=== PATIENT | female | born 1970 | race Caucasian/White ===

== ENCOUNTER → 2017-11-05 18:20 | Outpatient (CLI) | payer OTHER, SELFPAY | PROVIDERS: Family Provider Family Medicine; PCP Family Medicine | DX: N39.0 Urinary tract infection, site not specified (principal) | CPT/HCPCS: 87086; 87088 ==

== ENCOUNTER → 2020-05-25 | Outpatient (CLI) | payer OTHER, SELFPAY | END | disposition home or self-care (01) | LOC: LABSPEC 13:41 | PROVIDERS: PCP Family Medicine; Visit Provider Family Medicine | DX: B34.9 Viral infection, unspecified (principal) | CPT/HCPCS: 87635; U0005; U0003 ==

== ENCOUNTER → 2020-07-20 | Outpatient (CLI) | payer OTHER, SELFPAY ==
[2020-07-21 16:49] LABS: Probe Check PASS; Specimen Processing Control PASS
== END | disposition home or self-care (01) ==
LOC: LABSPEC 13:45
PROVIDERS: PCP Family Medicine; Referring Provider Family Medicine; Visit Provider Family Medicine
DX: Z20.822 Contact with and (suspected) exposure to COVID-19 (principal)
CPT/HCPCS: 87635; U0002; U0003

== ENCOUNTER → 2020-11-15 10:23 | Outpatient (CLI) | payer OTHER, SELFPAY ==
--- NOTE | 2020-11-15 10:24 | RAD_ITS ---
STUDY: X-RAY - LUMBOSACRAL SPINE REASON FOR EXAM: Female, 49 years old. Lumbar back pain with L L5 radicular symptoms TECHNIQUE: 6 view(s) of the lumbosacral spine were obtained including oblique views and flexion and extension views.. COMPARISON: None FINDINGS: Normal lumbar lordosis. There is no substantial scoliosis. There is normal alignment of the vertebrae. Normal vertebral bodies and endplates. Mild degree of disc space narrowing at the L5-S1 level. Normal bilateral sacral ala, sacroiliac joints, and visualized sacrum. Normal visualized soft tissue structures. RAD/L/S Spine w Bend Min 6 Vw IMPRESSION: Degenerative changes of the spine, as detailed above. Electronically Signed: Evangelista Thibodeaux MD at 15:41 EDT , Service support ,
== END ==
PROVIDERS: PCP Family Medicine; Referring Provider Family Medicine; Visit Provider Family Medicine
DX: M54.17 Radiculopathy, lumbosacral region (principal)
CPT/HCPCS: 72114

== ENCOUNTER 2020-12-09 09:00 | Outpatient (RCR) | payer OTHER, SELFPAY ==
--- NOTE | 2020-11-16 12:10 | HP.PTEVAL_ITS ---
Patient's Visit Information MARKOS CABRERA is a 49 year old F referred to Physical Therapy by Dr. Surya Gomez MD with a diagnosis of BACK STRAIN, L5 LEFT LEG RADICULOPATHY. Date of Evaluation: 11/16/20 Physical Therapist: Brianna Murdock PT, Cert MDT - Visit Plan Frequency: 2-3x /Week Duration: 4-6 Weeks Plan: POSTURE CORRECTION/STRENGTHENING, INSTRUCTION IN APPROPRIATE BODY MECHANICS AND ACTIVITY MODIFICATIONS. DLS STARTING WITH A NEUTRAL SPINE PROGRESSING ROM TOLERATED. MICHAEL LE ROM, STRETCHING AND STRENGTHENING. HEP INSTRUCTION. - Subjective Work/Leisure: PATIENT IS UNEMPLOYEED. TAKES CARE OF HER DAD - LIVES WITH HER. 21, 19 AND 17 YEAR OLD CHILDREN ALSO LIVE WITH HER. IS IN GOOD HEALTH. Disability: NO. Present symptoms: LEFT LOW BACK PAIN. LEFT HIP PAIN. RADIATES DOWN THE BACK OF LEG TO CALF. CALF IS TENSE AND TIGHT. THE LEFT LEG TINGLES AND IS SOMETIMES NUMB. PAIN, NUMBESS AND TINGLING TO THE FOOT AND TOES TOES. Present since: ABOUT 3 MONTHS. Pain Scale: WORST 9/10, LEAST 3/10. Currently: 5/10. Commenced as a result of: NO APPARENT REASON. Symptoms at onset: LOW BACK PAIN. Worse: BENDING, TRYING TO PUT SHOES AND SOCKS ON, USING L LE TO BRIDGE IN BED, GETTING IN AND OUT OF THE CAR, TWISING. LIFTING. Better: CHANGE OF POSITION, PAIN PILLS, AVOIDING BENDING AND TWISTING. BENDING TO LIFT. LYING DOWN. RISING FROM SITTING. Disturbed sleep: NO. Previous history/Previous treatment: INTERMITTENT LOW BACK PAIN. SEES A CHIROPRACTOR REGULARLY FOR ABOUT 19 YEARS. STARTED SEEING CHIROPRACOTR FOR LOW BACK PAIN AND WELLNESS. NO BACK SURGERY. NO TAMAR'S. NO PHYSICAL THERAPY FOR BACK. Treatment this episode: [address] WASSERMAN OFFICE. PAIN MEDICINE, PREDNISONE AND MUSCLE RELAXER. 3 CHIROPRACTIC VISIT FOR THIS LOW BACK PAIN. MASSAGE THERAPIST ONCE. MASSAGE AND CHIROPRACTOR HELPED TEMPORARILY. Coughing/sneezing/straining: POSITIVE. Gait: LIMPING ON LLE. I FEEL LIKE I AM HOBBLING. Difficulty initiating urinatin: NO. Accidents: NO. Unexplained weight loss: NO. Imaging: RECENT LOW BACK X-RAY - Mild degree of disc space narrowing. at the L5-S1 level. PMH: UNREMARKABLE. Recent major surgery: NO. OTHER: STILL GETTING LLE MUSCLE CRAMPS MY MUSCLES JUMP. PATENT REPORTS THAT SHE HAS BEEN DOING CROSS FIT DAILY FOR ABOUT 5 YEARS. HASN'T BEEN TO THE GYM FOR A WEEK. THE WEEK BEFORE ALL SHE WAS ABLE TO DO WAS WALK ON THE [place]. HAS NOT BEEN ABLE TO DO HER NORMAL CROSS FIT WORK OUT FOR A FEW WEEKS. STATES SHE ORIGIANLLY TRIED TO WORK THROUGH HER LOW BACK PAIN WITH CROSS FIT BUT THE PAIN JUST KEPT GETTING WORSE. TRIED TO MODIFY HER EX'S BUT EVENTUALLY COULDN'T DO IT ANYMORE. - Objective Sitting/Standing Posture: POOR. Lordosis: NORMAL. Lateral shift: NO. Relevant shift: N/A. Active Correction of posture: WORSE. Other Observations: INDEP SLOW ANTALGIC GAIT INTO PT LIMPING ON THE L LE. Motor deficit: MICHAEL LE'S 5/5 WITH MMT'ING EXCEPT L HIP 4/5. Sensory deficit: DECREASED LIGHT TOUCH SENSATION OF LEFT THIGH COMPARED TO RIGHT AND PATIENT REPORTS A TINGLING AND MORE DULL SENSATION L COMPARED TO RIGHT. ROM deficit: MICHAEL LE'S WFL. Reflexes: 2/3 MICHAEL LE'S EXCEPT UNABLE TO ELICIT LEFT ACHILLES. Dural Signs: POSITIVE MICHAEL LE'S - LEFT > RIGHT. Lumbar mvmt loss: flex - JERRY. ext - JERRY. R SG - MOD. L SG - MOD. PATIENT C/O PINCHING PAIN IN L LOW BACK WITH LUMBAR FLEXION AND EXTENSION ROM TESTING. Core strength: POOR. Palpation: TENDERNESS WITH PALPATION OF THE LEFT LOW BACK REGION. TREATMENT: NEUROMUSCULAR REEDUCATION - RETRAINING OF MVMT AND POSTURE FOR SITTING, LYING AND STANDING ACTIVITIES. - Goals Goal 1:: DECREASE C/O LOW BACK AND L LE SX'S. Goal Time Frame: 4-6 Weeks Goal 2:: IMPROVE PERSONAL CARE, LIFTING, SITTING, SOCIAL LIFE, TRAVEL AND EMPLOYMENT/HOMEMAKING FUNCTION Goal Time Frame: 4-6 Weeks Goal 3:: INSTRUCT IN PROPHYLAXIS Goal Time Frame: 4-6 Weeks - Anticipated Interventions Patient/Client Instruction: Educate patient on: Condition, Plan of Care, Risk Factors For the Purpose of:: To improve self management Therapeutic Exercise to Include: Strength training, Body mechanics, Postural training, Flexibilty training, Gait and locomotor training, Neuromotor development, In an aquatic setting, Dynamic Lumbar Stabilization For the Purpose of:: To decrease pain, To increase ROM, To improve muscle performance and motor function, To increase tolerance to activity/condition/position, To improve ability of physical actions for home/community/work/leisure, To improve gait and locomotor functions Thank you for the opportunity to evaluate your patient. For Medicare and Medicare HMO plans, please review the plan of care and approve it. It will need to be FAXED BACK to us at [phone] for Medicare purposes. For Medicare only, by signing this I certify the plan of care. Please let me know if there are questions or concerns regarding this plan of c are. Physician Signature: Date:
--- NOTE | 2021-03-21 13:04 | HP.PT.NRP ---
MARKOS CABRERA was seen in my office for initial evaluation on 11/16/20. The following Plan of Care was established for this patient: Initial Frequency: 2-3x /Week Initial Duration: 4-6 Weeks Patient/Client Instruction: Educate patient on: Condition, Plan of Care, Risk Factors For the Purpose of:: To improve self management Therapeutic Exercise to Include: Strength training, Body mechanics, Postural training, Flexibilty training, Gait and locomotor training, Neuromotor development, In an aquatic setting, Dynamic Lumbar Stabilization For the Purpose of:: To decrease pain, To increase ROM, To improve muscle performance and motor function, To increase tolerance to activity/condition/position, To improve ability of physical actions for home/community/work/leisure, To improve gait and locomotor functions This patient was last seen in our office 12/09/20. Pertinent comments regarding their Physical therapy will appear below: This patient has not returned to Physical Therapy and is appropriate to return to MD for further follow-up as needed. At this point I will be discontinuing this patient from physical therapy. I would be happy to see this patient again in the future if found appropriate by the physician. Thank you! Brianna Murdock, PT, Cert MDT Balance/Gait/Functional tests - Balance/Special Test Scores Oswestry Low Back Score: 16
== END 2020-12-09 19:00 | disposition home or self-care (01) ==
LOC: PT 09:00
PROVIDERS: PCP Family Medicine; Referring Provider Family Medicine; Visit Provider Family Medicine
DX: S39.012D Strain of muscle, fascia and tendon of lower back, subsequent encounter (principal); X58.XXXD Exposure to other specified factors, subsequent encounter; M54.16 Radiculopathy, lumbar region
CPT/HCPCS: 97014; 97035; 97110; 97112; 97162; 97530; G0283

== ENCOUNTER → 2020-12-16 12:49 | Outpatient (CLI) | payer OTHER, SELFPAY ==
--- NOTE | 2020-12-16 12:53 | MRI_ITS ---
STUDY: MRI LUMBAR SPINE WITHOUT CONTRAST REASON FOR EXAM: Female, 49 years old. left leg radiculopathy, back pain, failed PT 6 wks, TECHNIQUE: Standardized fat and water weighted pulse sequences were obtained in the sagittal and axial planes. COMPARISON: X-ray 11/15/2020 FINDINGS: T12-L1: Normal endplates. Normal disc height, hydration and morphology. Normal bilateral facet joints. Normal central canal and bilateral lateral recesses. Normal bilateral intervertebral neural foramina. Normal lumbar lordosis. There is no substantial scoliosis. Normal conus medullaris that terminates at the L1. L1-2: Normal endplates. Normal disc height, hydration and morphology. Normal bilateral facet joints. Normal central canal and bilateral lateral recesses. Normal bilateral intervertebral neural foramina. L2-3: Normal endplates. Normal disc height, hydration and morphology. Normal bilateral facet joints. Normal central canal and bilateral lateral recesses. Normal bilateral intervertebral neural foramina. L3-4: Normal endplates. Normal disc height, hydration and morphology. Normal bilateral facet joints. Normal central canal and bilateral lateral recesses. Normal bilateral intervertebral neural foramina. L4-5: Mild bilateral facet hypertrophy and ligament flavum hypertrophy. Mild broad disc protrusion with a central annular tear produces moderate spinal stenosis with moderate bilateral lateral recess stenosis with abutment of the L5 nerve roots bilaterally and mild bilateral neural foraminal stenosis. L5-S1: Large left paracentral disc extrusion produces severe spinal stenosis, severe left lateral recess stenosis with effacement of the left S1 and S2 nerve roots and no neural foraminal stenosis. Normal visualized sacral ala. Normal visualized paraspinous soft tissue structures. MRI/Spine Lumbar (Routine) IMPRESSION: Multilevel degenerative changes, as described above. Electronically Signed: Yohan Sanches MD at 16:54 EDT Tel , Service support ,
== END ==
PROVIDERS: PCP Family Medicine; Referring Provider Family Medicine; Visit Provider Family Medicine
DX: M54.17 Radiculopathy, lumbosacral region (principal)
CPT/HCPCS: 72148

== ENCOUNTER → 2021-01-12 | Outpatient (CLI) | payer OTHER, SELFPAY | END | disposition home or self-care (01) | LOC: LABSPEC 11:59 | PROVIDERS: PCP Family Medicine; Referring Provider Family Medicine; Visit Provider Family Medicine | DX: U07.1 COVID-19 (principal) | CPT/HCPCS: 87635; U0005; U0003 ==

== ENCOUNTER 2021-01-26 10:01 | Day surgery (SDC) | payer OTHER, SELFPAY ==
[2020-12-30 15:08] LABS: Absolute Lymphocyte Count 1.95 X10^3/uL (0.83-4.51); Absolute Neutrophil Count 3.4 X10^3/uL (2.0-7.7); Basophil# 0.03 X10^3/uL; Basophil% 0.5 % (0-1); Eosinophil# 0.11 X10^3/uL; Eosinophils% 1.9 % (0-5); Hematocrit 42.5 % (37-47); Hemoglobin 13.8 g/dL (12.0-15.0); Lymphocyte # 1.95 X10^3/ul (0.83-4.51); Lymphocyte % 33.1 % (19-41); Mean Corp Hgb Conc 32.5 g/dL (32-36); Mean Corpuscular Hgb 27.7 pg (27.0-32.0); Mean Corpuscular Volume 85.3 fL (81-99); Mean Platelet Vol. 10.9 fl (6.2-12.0); Monocyte# 0.43 X10^3/uL; Monocyte% 7.3 % (0-10); NRBC Flagged by Analyzer 0 % (0-5); Neutrophil # 3.36 X10^3/uL (2.7-7.7); Platelet Count 238 K/mm3 (150-450); RBC Distribution Width CV 14.1 % (11.6-14.6); RBC Distribution Width SD 44.2 fl (35.1-43.9); Red Blood Count 4.98 M/mm3 (4.2-5.4); White Blood Count 5.9 K/mm3 (4.4-11.0)
[2020-12-30 15:15] LABS: Anion Gap 5 (5-15); BUN 24 mg/dL (7-18); BUN/Creat Ratio 31.7 RATIO (10-20); Calcium,Total 9.4 mg/dL (8.5-10.1); Chloride 105 mmol/L (98-107); Creatinine, Serum 0.76 mg/dL (0.55-1.02); EST Glomerular Filtration Rate 85 mL/min (>60); Est Glom Filt Rate - Afr Amer 103 mL/min (>60); Glucose 87 mg/dL (74-106); Potassium 4.2 mmol/L (3.5-5.1); Sodium Level 140 mmol/L (136-145)
[2020-12-30 15:47] LABS: HIV - WCH Non-Reactive (Nonreactive)
[2021-01-01 08:08] LABS: HEPATITIS B SURFACE AG Negative (Negative); Hepatitis A IgM Antibody Negative (Negative); Hepatitis B Core AB IgM Negative (Negative)
[2021-01-02 10:29] LABS: Magnesium 2.2 mg/dL (1.6-2.6)
[2021-01-03 17:07] LABS: Hep C Antibodies <0.1 s/co ratio (0.0-0.9); Hepatitis A AB, Total Negative (Negative)
--- NOTE | 2021-01-04 08:53 | EKG12_ITS ---
Test Reason : PREOP Blood Pressure : / mmHG Vent. Rate : 107 BPM Atrial Rate : 107 BPM P-R Int : 156 ms QRS Dur : 082 ms QT Int : 314 ms P-R-T Axes : 064 071 056 degrees QTc Int : 419 ms Sinus tachycardia Otherwise normal ECG Confirmed by RANDOLPH SANTANA, SHILPA ([id number]), website/blog editor MARK SOSA ([id number]) on 01/04/2021 8:54:51 AM Referred By: Troy Condon Confirmed By:SHILPA DICKSON MD
--- NOTE | 2021-01-25 16:35 | HP.PCM_ITS ---
History and Physical Date of Admission: 01/26/21 [facility] [id number] [phone] OFFICE VISITDate of Service: 12/26/20 MR#:[id number]:[id number]: MARY CABRERA #:[id number]:[id number] Provider:Dr. Troy Condon DOAge/Sex: 50/F Location:Miri:Signed Intake Vital Signs 12/26/20 10:46 Height 5 ft 6 in Weight: 212 lb 6 oz BMI 34.2 Intake Visit Reasons: Lumbar spine Accompanied by: Self Allergies morphine Allergy (Mild, Verified 12/26/20 10:51) vomitting Medications cyclobenzaprine 5 mg tablet 5 mg PO QHS 12/26/20 [History Confirmed 12/26/20] meloxicam 15 mg tablet 15 mg PO DAILY 12/26/20 [History Confirmed 12/26/20] tramadol 50 mg tablet 50 mg PO BID PRN 12/26/20 [History Confirmed 12/26/20] PFSH Surgical History (Updated 12/26/20 @ 10:57 by Maria Teresa Ledesma) History of ankle surgery History of mandibular surgery Hx of section Hx of prior ablation treatment Family History (Updated 12/26/20 @ 11:01 by Maria Teresa Ledesma) Mother Hypertension Heart disease Arthritis Diabetes Father Hypertension Heart disease Grandfather Cancer Social History (Updated 12/26/20 @ 11:03 by Maria Teresa Ledesma) household members: significant other, children and other details: father number of children: 3 Smoking Status: Former smoker alcohol intake: current diet: other what type of physical activity do you participate in: other details: crossfit frequency: 5-6 times per week HPI Lumbar spine Details: Parts of this documentation were recorded by a scribe, this documentation accurately reflects the service provided and the decisions made by me, Dr. Troy Condon DO 12/26/20 1028. MARY CABRERA is a 50 year old F here today for lumbar spine pain with left sided radiculopathy down to the outer side of her foot. Patient was referred by Dr. Mcneill. Patient had a steroid injection from Dr. Mcneill at the end of November that is starting to mitchell off. Patient had an MRI on 12/16/20 and Lumbar X-rays on 11/15/20. Patient states she has pain into her groin and buttocks. Bowel movements are painful. Patient states she has had back pain off and on for a few months but her pain has recently started to get worse over the past 6 weeks. Patient does go to the gym on a daily basis. Patient had modified her gym workouts when things to hurt. Patient does go to a Chiropractor and a massage therapist. Patient has done PT for her back pain that was unsuccessful. Patient denies any previous surgery done to her lumbar spine Patient has tried the following conservative treatments for six weeks or greater: [RICE, OTC NSAIDs, home exercises provided by a provider, corticosteroid inje ctions and oral corticosteroids, narcotic and non-narcotic analgesic medication(s), acute care physician, PT/OT,management techniques, Patient has found no relief and would like to further investigate their s/s. Therefore, will order a(n) [TEST/STUDY] to appropriately determine if [tx/sx] would be appropriate for the patient. Mary is a most pleasant lady 50 years old has chief complaint of pain in her left buttocks that radiates down the left thigh and left leg. This started about 6 weeks ago. Before that she was having a lot of low back pain when the leg pain started the back pain got better. She states that she does feel some degree of urgency when she urinates. However she has no trouble starting her stream and when she is done she feels that she has emptied her bladder. She has no problem with control of her bowels. On examination she has very positive tension signs very positive straight leg raising on the left side. Her left Achilles reflex is completely absent. She has some mild peroneal weakness on the left as compared to the right. She also has a weakness of the gastrocnemius musculature on the left as compared to the right. In addition it is easily fatigable. Plain x-rays demonstrate a decreased disc space at L5-S1. The MRI scan that was done recently demonstrates a gigantic herniation at L5-S1 on the left side blocking about 60% of the spinal canal. Our plan is obvious. The gigantic herniated disc needs to come out as soon as is reasonably possible. We will try to get her scheduled perhaps for next week if possible. I will see her again hopefully in just a few days. Coding Level of Care Code Off vis,new,level 3 Diagnoses Herniated nucleus pulposus, L5-S1, left M51.27 Cauda equina syndrome G83.4 Time Spent (min) 30 Assessment and Plan Assessment and Plan (1) Herniated nucleus pulposus, L5-S1, left: Status: Acute (2) Cauda equina syndrome
[2021-01-26] VITALS (12 sets, daily range): BP systolic 108–149; BP diastolic 67–111; PULSE 62–104; RESP 16–18; TEMP 36.1–37.1; O2SAT 94–100; BMI 33.5
[2021-01-26] MEDS: Acetaminophen 500 MG Tablet 1000 MG PO ×2 (07:00→20:46)
[2021-01-26] MEDS: Lactated Ringers 1,000 ML 100 ML IV ×3 (10:25→17:37)
[2021-01-26 11:41] LABS: Bedside Glucose 91 mg/dL (70-110)
[2021-01-26] MEDS: Cefazolin 2 GM in 0.9% Normal Saline 100 ML IV (12:13)
--- NOTE | 2021-01-26 12:20 | DISC_PTH ---
PATIENT: MARKOS CABRERA LOC: [facility] U#:[id number] AGE/SX: 50/F ROOM: RE01/26/[address]: Dr. Troy Condon DO : 1970 BED: DIS: 01/27/2021 SPEC #: [id number] RECD: 01/26/21 15:30 STATUS: MICHAEL REKlaus #: [id number] DEJA: 01/26/21 12:[address]: Troy Condon DEPT: SURGICAL PATHOLOGY RECD BY: Alma Vasquez ENTERED: 01/27/21 12:02 SP TYPE: DISC OTHR DR: MD Beverly Frazier, BLOCK BOLTER MULE OPERATOR-C Tissues: Intervertebral disc, NOS Procedures: Surgery Specimen Level III HEADER OPERATION: ERAS, laminectomy, lumbar L5-S1 PRE-OP DIAGNOSIS: Herniated nucleus pulposus, L5-S1, left TISSUE SUBMITTED: Disc lumbar L5-S1 MICROSCOPIC DIAGNOSIS Intervertebral disc, L5-S1, discectomy: Intervertebral disc with degenerative change. AM:kavitha 01/30/2021 MICROSCOPIC DESCRIPTION Slides are reviewed. GROSS DESCRIPTION Received in fixative is one container labeled with the patient's name and designated disc lumbar L5-S1. The specimen consists of multiple indurated fragments of pink-thurston soft tissue that in aggregate measure 4 x 4 x 1.5 cm. Lead Cook sections are submitted in one cassette. / AM:kavitha 01/27/21 TC:5 CPT: 88457
--- NOTE | 2021-01-26 12:20 | RAD_ITS ---
STUDY: X-RAY - LUMBAR SPINE REASON FOR EXAM: Female, 50 years old. ERAS, LUMBAR LAMINECTOMY, L5-S1 TECHNIQUE: 1 view(s) of the lumbar spine were obtained. COMPARISON: None FINDINGS: Intraoperative imaging was provided for localization. The metallic instrument is seen posterior to the L5-S1 disc space level. RAD/Spine 1 View Any Level IMPRESSION: The metallic localization instrument is seen posterior to the L5-S1 disc space level. Electronically Signed: Evangelista Thibodeaux MD at 15:37 EDT , Service support ,
[2021-01-26] MEDS: THROMBIN (RECOMBINANT) 20,000 UNIT VIAL 20000 UNIT TOPICAL (13:33)
--- NOTE | 2021-01-26 15:04 | PCM.OPRPT ---
Report of Operation Date of Procedure: 01/26/21 Description of Surgical Findings:: Preoperative diagnosis: Herniated disc L5-S1 with severe left S1 radiculopathy intractable pain and neurological deficit Postoperative diagnosis: The same Procedure: Lumbar laminectomy discectomy L5-S1 on the left CPT code 99961 Surgeon: Dr. Condon public health training assistant: Amanda FERRARA Anesthesia: General endotracheal anesthesia administered by [facility] Estimated blood loss: Less than 30 cc Drains: Medium Hemovac Complications: None Procedure: Patient was taken to the OR where she was placed under general endotracheal anesthesia while still on the gurney. A Sampson catheter was inserted. Neuro monitoring placed all their leads and the patient. She was then placed in the prone position on the Dony frame. Care was taken to protect her bony prominences her breasts her brachial plexus bilaterally her ulnar nerves on both sides the neck and facial features.. The back was then prepped and draped in standard fashion. I made a longitudinal incision centered over L5-S1. Subcutaneous tissues were incised length of skin incision. I then elevated paravertebral muscles off the lamina of L5 and took an intraoperative x-ray to assure that we were indeed at that level which we were. Further elevated out over the facet joint. A Sofiya retractor was then put in place. I then released the ligamentum flavum off the underside of the lamina of L5 the left side. The laminectomy was carried out with 45 degree Kerrison rongeurs. Remove the ligamentum flavum in retrograde fashion with 45 degree Kerrison rongeurs. I had to remove the top of the S1 lamina also to make sure that I could get further enough down to look under the nerve root. Foraminotomy was performed. I then retracted the midline structures and the nerve root medialward exposing a very large herniated disc it was basically a free fragment it was expressed in many many pieces were removed I also removed some from the disc space itself as it was a very large tear through the annulus. Note the bleeders were controlled with bipolar cautery and thrombin-soaked Gelfoam. In addition we thoroughly irrigated 1015 minutes in the course of the case to prevent infection. Once all the disc was removed the pressure was off the S1 nerve root. Amnionic membrane was then placed directly over the dura and nerve root to prevent adhesions. Gelfoam was placed over the top of that. Closure was then begun I closed the lumbar fascia using [id number] suture with #1 Vicryl followed by closure of subcutaneous tissues with 2-0 Vicryl in interrupted fashion and the skin was approximated using skin clips sterile dressings were applied. The patient was then moved to her hospital bed and recovered in the OR and taken to recovery in satisfactory condition. The end of operative summary on Mary Kwong. This is Dr. Condon dictating.
--- NOTE | 2021-01-26 16:16 | PCM.PROGNOTE ---
Documented by User: PENNIE Cole 01/26/21 16:21 Subjective Subjective Patient seen and examined. Patient states that other than being cold she has a small area of her back that continues to be painful however states that pain medicine has been effective at reducing pain level from a 8 to a 4. Patient denies nausea, vomiting. Objective Data Objective Data Vital Signs: Vital Signs Temp Pulse Resp BP Pulse Ox 97.5 F L 70 16 142/84 H 100 01/26/21 15:07 01/26/21 16:00 01/26/21 16:00 01/26/21 16:00 01/26/21 16:00 Oxygen Flow Rate (L/min) 6 Oxygen Delivery Method T-piece Weight: 207 lb 14.334 oz Body Mass Index (BMI) 33.5 Intake & Output: Intake and Output for Last 24 Hours 01/24/21 01/25/21 01/26/21 23:59 23:59 23:59 Intake Total 1216 / 1216 Balance 1216 / 1216 Lab / Micro Data Result Diagrams: 12/30/20 12:53 12/30/20 12:53 Labs: Laboratory Results - last 24 hr 01/26/21 10:46: POC Glucose 91 Micro: Microbiology 12/30/20 12:53 Swab (Method) Nasal Screen MRSA/MSSA - Final Radiography Diagnostic Testing: Radiology Impression Spine X-Ray 01/26/21 12:20 IMPRESSION: The metallic localization instrument is seen posterior to the L5-S1 disc space level. Electronically Signed: Evangelista Thibodeaux MD at 15:37 EDT , Service support , Physical Exam Const alert, oriented x3 and no apparent distress General Appearance: cooperative HEENT normocephalic and head/scalp atraumatic Eyes conjunctivae normal and no scleral icterus Neck supple and no JVD General: trachea midline Resp normal respiratory effort, normal air movement and clear to auscultation bilaterally Cardio regular rate, regular rhythm, S1 normal heart sound and S2 normal heart sound GI normal to inspection, nondistended, normoactive bowel sounds, soft to palpation and non-tender Extremity normal capillary refill and no clubbing, cyanosis or edema General Extremity: no tenderness to palpation of joints or extremities Skin General Skin Exam: no breakdown and turgor normal Lesions: no lesions Rashes: no rashes Neuro no focal motor deficits and no sensory deficits noted Speech: speech normal Motor Exam: Negative for general weakness Psych thought process normal, cooperative and affect normal Appearance: appropriate Assessment & Plan Assessment/Plan (1) Cauda equina syndrome: (2) Herniated nucleus pulposus, L5-S1, left: PLAN: 1. Herniated nucleus pulposis, L5-S1 left -Underwent lumbar laminectomy discectomy L5-S1 on the left with Dr. Figueroa 01/26/2021 -Pain medication regimen ordered per surgeon -Obtain CBC and BMP in a.m. -Preop labs reviewed within normal limits aside from a slightly elevated BUN of 24. -It is of note that patient positive for Covid on 01/03 and 01/12. Patient has no other chronic health conditions, okay for patient to restart supplements upon discharge. DVT prophylaxis-SCDs This patient was seen by PENNIE Cole under the supervision of Dr. Cespedes. Documented by User: Dr. Surya Stacy DO 01/26/21 17:19 Objective Data Lab / Micro Data Result Diagrams: 12/30/20 12:53 12/30/20 12:53 Charges/Coding Addendum Addendum: Patient seen and examined independently. Data and vitals reviewed. I agree with the above note by the nurse practitioner. Patient groggy after surgery. No acute distress and afebrile. Heart rate regular and rhythm plus S1-S2 with a murmurs, rubs. Lungs are clear to auscultation bilaterally. Abdomen is soft nontender nondistended normal bowel sounds hepatosplenomegaly. Assessment and plan 1. Herniated nucleus pulses L5-S1: Underwent lumbar laminectomy and discectomy today. Pain medication already ordered. 2. Recent COVID-19 No current complications Has completed quarantine 3. VTE prophylaxis with SCDs. No active medical issues. The hospital service will sign off. Please reconsult if new medical issues arise. Visit Charges Inpatient E&M: 97574 Subs Hosp L2
--- NOTE | 2021-01-26 17:39 | PCS.PANDOC ---
PANDEMIC DOCUMENTATION INITIATED: Date: 12/26/2020 Time: 190
[2021-01-26] MEDS: Ondansetron 4 MG/2 ML Vial IV (18:46)
[2021-01-26] MEDS: proCHLORPERazine 10 MG/2 ML Vial 5 MG IV (20:15)
[2021-01-26] MEDS: 0.9% NaCl Peripheral Flush Adult/Peds IV (20:17)
[2021-01-26] MEDS: Cefazolin 1 GM/50 ML BAG IV (20:20)
[2021-01-26] MEDS: Senna/Docusate Sodium 1 Tablet 2 TABLET PO (20:46)
[2021-01-26] MEDS: Famotidine 20 MG Tablet PO (20:46)
[2021-01-26] MEDS: oxyCODONE 5 MG Tablet PO (22:06)
[2021-01-27] MEDS: Lactated Ringers 1,000 ML 100 ML IV (02:21)
[2021-01-27 02:30] VITALS: BP 128/67; PULSE 98; RESP 18; TEMP 37.2; O2SAT 95
[2021-01-27] MEDS: Cefazolin 1 GM/50 ML BAG IV (05:18)
[2021-01-27] MEDS: Acetaminophen 500 MG Tablet 1000 MG PO ×2 (05:22→13:02)
[2021-01-27 05:24] VITALS: BP 109/70; PULSE 90; RESP 16; TEMP 37.2; O2SAT 96
[2021-01-27] MEDS: oxyCODONE 5 MG Tablet PO ×2 (05:32→10:19)
[2021-01-27 08:47] VITALS: BP 122/87; PULSE 79; RESP 16; TEMP 36.8; O2SAT 98
[2021-01-27] MEDS: Famotidine 20 MG Tablet PO (10:19)
--- NOTE | 2021-01-27 11:25 | CASEMGMT ---
RN CM HAND CIGAR MAKING SUPERVISOR CM to room to meet with patient for initial transition planning/care coordination assessment. RN ALEXANDRIA introduced self and role at [facility]. Pt voices understanding and consents to assessment at this time. Pt sitting up in chair in room in no distress at this time. Pt is A/O at this time and answers all questions appropriately. Pt is an RN. Care providers, pharmacy, and demographics verified/updated at this time. PCP: Dr Gomez Specialists: Dr Condon-cammy. Pt states already has a f/u appt w/him in 2 weeks. Preferred [facility]acy[facility] Insurance: MMO Prescription Benefit: Yes LNOK: , [place]el Living Arrangements: Lives w/her , father, 2 dtr's and a son. Father is paraplegic and pt helps to care for him. Lives in a one-story home w/ramp entrance. [employer] family is supportive and bringing meals to the home every day this week. Transportation: Pt states drives self and states no transportation concerns at this time. also drives. DME: Pt uses no DME herself, but has BSC, walker, W/C's, and lifts available that her father uses. Pt states no need for further DME at this time. HHC/SNF: No hx of either. Pt wishes to return home and states has no concerns with going home at time of discharge. CM to follow for any discharge planning/needs. Pt voices no concerns/needs at this time. Advised pt to ask for CM if any questions/concerns/needs arise. Voices understanding. PLAN: Home w/family support and discharge plans in place. Aneudy BNEITEZ RN, CM
[2021-01-27] MEDS: diazePAM 5 MG Tablet PO (11:53)
--- NOTE | 2021-01-27 12:41 | PCM.DC.SUM ---
Providers Primary Care Physician: Dr. Surya Gomez MD Consultations 01/26/21 14:56 Consult: Hospitalist Routine Consulting Provider: Beverly Calhoun Reason for Consult: Medical Management EMERGENT Consult: No MD Notified: Yes Date Notified: 01/26/21 Time Notified: 14:56 Method of Notification: Verbal Reason For Visit: LUMBAR LAMINECTOMY L5-S1 Diagnosis Discharge Diagnosis (1) Cauda equina syndrome: Status: Acute Code(s): G83.4 - Cauda equina syndrome (2) Herniated nucleus pulposus, L5-S1, left: Status: Acute Code(s): M51.27 - Other intervertebral disc displacement, lumbosacral region Medications at Discharge Home Medications cyclobenzaprine 5 mg tablet 5 mg PO Q8H PRN PRN 12/26/20 meloxicam 15 mg tablet 15 mg PO DAILY 12/26/20 tramadol 50 mg tablet 50 mg PO Q6H PRN PRN 12/26/20 Plexus Slim 1 po pk PO/SL DAILY 01/02/21 acetaminophen 650 mg PO Q6H PRN 01/02/21 ascorbic acid (vitamin C) [Vitamin C] 1,000 mg PO DAILY 01/02/21 cetirizine 10 mg PO DAILY PRN 01/02/21 multivitamin [Super Multivitamin] 1 tab PO DAILY 01/02/21 zinc 50 mg PO DAILY 01/02/21 Weight / BMI Weight Weight: 207 lb 14.334 oz Body Mass Index (BMI) 33.5 ABG / Lab / Microbiology Data Result Diagrams: 12/30/20 12:53 12/30/20 12:53 Microbiology: Microbiology 12/30/20 12:53 Swab (Method) Nasal Screen MRSA/MSSA - Final Radiography Diagnostic Testing: Radiology Impression Spine X-Ray 01/26/21 12:20 IMPRESSION: The metallic localization instrument is seen posterior to the L5-S1 disc space level. Electronically Signed: Evangelista Thibodeaux MD at 15:37 EDT , Service support , Meaningful Use Info Meaningful Use Diagnoses (Choose all that apply): None applicable Discharge Plan Admission Primary Reason for Your Visit: surgery Attending Provider: Troy Condon Primary Care Provider: Surya Gomez Consulting Providers: Beverly Calhoun Discharge Orders/Prescriptions Prescriptions: No Action meloxicam 15 mg tablet 15 mg PO DAILY RF: 0 tramadol 50 mg tablet 50 mg PO Q6H PRN PRN (Reason: Pain) RF: 0 cyclobenzaprine 5 mg tablet 5 mg PO Q8H PRN PRN (Reason: muscle spasms) RF: 0 multivitamin [Super Multivitamin] Tablet 1 tab PO DAILY RF: 0 acetaminophen 325 mg Tablet 650 mg PO Q6H PRN (Reason: Pain) RF: 0 Vitamin C 1,000 mg Tablet Extended Release 1,000 mg PO DAILY RF: 0 zinc 50 mg Capsule 50 mg PO DAILY RF: 0 Plexus Slim 1 po pk PO/SL DAILY RF: 0 cetirizine 10 mg Tablet 10 mg PO DAILY PRN (Reason: environmental allergies) RF: 0 Referrals / Follow Up: Surya Gomez MD [Primary Care Provider] - Disposition Disposition (needs filled in before D/C Order can be placed): Home, Self Care
--- NOTE | 2021-01-27 12:42 | PCM.DC.SUM ---
Providers Primary Care Physician: Dr. Surya Gomez MD Consultations 01/26/21 14:56 Consult: Hospitalist Routine Consulting Provider: Beverly Calhoun Reason for Consult: Medical Management EMERGENT Consult: No MD Notified: Yes Date Notified: 01/26/21 Time Notified: 14:56 Method of Notification: Verbal Reason For Visit: LUMBAR LAMINECTOMY L5-S1 Diagnosis Discharge Diagnosis (1) Cauda equina syndrome: Status: Acute Code(s): G83.4 - Cauda equina syndrome (2) Herniated nucleus pulposus, L5-S1, left: Status: Acute Code(s): M51.27 - Other intervertebral disc displacement, lumbosacral region Plan: This is discharge summary on Mary Kwong. She was admitted yesterday the and had a lumbar laminectomy at L5-S1. Days postop day #1. Her buttocks and thigh and leg pain is completely gone. Neurologically she is intact. The dressing was changed it was healing well. The drain was removed. He was given post laminae protocol regarding her activities. She already has an appointment to see me 13 days from now in my office. She will be given oxycodone for pain. Medications at Discharge Home Medications cyclobenzaprine 5 mg tablet 5 mg PO Q8H PRN PRN 12/26/20 meloxicam 15 mg tablet 15 mg PO DAILY 12/26/20 tramadol 50 mg tablet 50 mg PO Q6H PRN PRN 12/26/20 Plexus Slim 1 po pk PO/SL DAILY 01/02/21 acetaminophen 650 mg PO Q6H PRN 01/02/21 ascorbic acid (vitamin C) [Vitamin C] 1,000 mg PO DAILY 01/02/21 cetirizine 10 mg PO DAILY PRN 01/02/21 multivitamin [Super Multivitamin] 1 tab PO DAILY 01/02/21 zinc 50 mg PO DAILY 01/02/21 Weight / BMI Weight Weight: 207 lb 14.334 oz Body Mass Index (BMI) 33.5 ABG / Lab / Microbiology Data Result Diagrams: 12/30/20 12:53 12/30/20 12:53 Microbiology: Microbiology 12/30/20 12:53 Swab (Method) Nasal Screen MRSA/MSSA - Final Radiography Diagnostic Testing: Radiology Impression Spine X-Ray 01/26/21 12:20 IMPRESSION: The metallic localization instrument is seen posterior to the L5-S1 disc space level. Electronically Signed: Evangelista Thibodeaux MD at 15:37 EDT , Service support , Meaningful Use Info Meaningful Use Diagnoses (Choose all that apply): None applicable Discharge Plan Admission Primary Reason for Your Visit: surgery Attending Provider: Troy Condon Primary Care Provider: Surya Gomez Consulting Providers: Beverly Calhoun Discharge Orders/Prescriptions Prescriptions: No Action meloxicam 15 mg tablet 15 mg PO DAILY RF: 0 tramadol 50 mg tablet 50 mg PO Q6H PRN PRN (Reason: Pain) RF: 0 cyclobenzaprine 5 mg tablet 5 mg PO Q8H PRN PRN (Reason: muscle spasms) RF: 0 multivitamin [Super Multivitamin] Tablet 1 tab PO DAILY RF: 0 acetaminophen 325 mg Tablet 650 mg PO Q6H PRN (Reason: Pain) RF: 0 Vitamin C 1,000 mg Tablet Extended Release 1,000 mg PO DAILY RF: 0 zinc 50 mg Capsule 50 mg PO DAILY RF: 0 Plexus Slim 1 po pk PO/SL DAILY RF: 0 cetirizine 10 mg Tablet 10 mg PO DAILY PRN (Reason: environmental allergies) RF: 0 Referrals / Follow Up: Surya Gomez MD [Primary Care Provider] - Disposition Disposition (needs filled in before D/C Order can be placed): Home, Self Care
[2021-01-27 13:00] VITALS: O2SAT 97
== END 2021-01-27 14:30 | disposition home or self-care (01) ==
LOC: SDC 10:02 → AC 10:02 → MS3 19:01
PROVIDERS: Anesthesiology; PCP Family Medicine; Referring Provider Orthopaedic Surgery; Visit Provider Orthopaedic Surgery
PROC: (CPT 63030; principal; 2021-01-26 11:50)
DX: M51.17 Intervertebral disc disorders with radiculopathy, lumbosacral region (principal); G83.4 Cauda equina syndrome; I11.9 Hypertensive heart disease without heart failure; E11.9 Type 2 diabetes mellitus without complications; Z79.1 Long term (current) use of non-steroidal anti-inflammatories (NSAID); Z87.891 Personal history of nicotine dependence; Z86.16 Personal history of COVID-19
CPT/HCPCS: 00670; 63047; 63048; 36415; 72020; 80048; 80074; 82962; 83735; 85025; 86703; 86708; 87077; 87081; 87635; 88304; 93005; C9803; J7120; U0005; A4216; J2405; U0003

== ENCOUNTER → 2021-09-19 | Outpatient (CLI) | payer OTHER, SELFPAY ==
[2021-09-19 18:20] LABS: Hemoglobin A1c 5.4 % (3.8-5.6)
[2021-09-19 18:26] LABS: AST(SGOT) 23 U/L (15-37); Alanine Aminotransfer ALT/SGPT 37 U/L (13-56); Albumin, Serum 4.1 g/dL (3.2-5.0); Alkaline Phosphatase 75 U/L (45-117); Bilirubin, Direct 0.06 mg/dL (0.00-0.30); Cholesterol 235 mg/dL (200); Creatinine, Serum 0.92 mg/dL (0.55-1.02); EST Glomerular Filtration Rate 68 mL/min (>60); Est Glom Filt Rate - Afr Amer 83 mL/min (>60); Ferritin 6 ng/mL (8-252); High Density Lipoprotein 68 mg/dL; Protein, Total 7.1 g/dL (6.4-8.2)
== END | disposition home or self-care (01) ==
PROVIDERS: PCP Family Medicine; Referring Provider Family Medicine; Visit Provider Family Medicine
DX: Z00.00 Encounter for general adult medical examination without abnormal findings (principal); E66.9 Obesity, unspecified; G25.81 Restless legs syndrome; Z68.34 Body mass index [BMI] 34.0-34.9, adult; Z52.008 Unspecified donor, other blood
CPT/HCPCS: 36415; 80076; 82465; 82565; 82728; 83036; 83718

== ENCOUNTER → 2021-09-21 | Outpatient (CLI) | payer OTHER, SELFPAY ==
--- NOTE | 2021-09-21 14:43 | BI_ITS ---
MAMMOGRAPHY - BILATERAL SCREENING REASON FOR EXAM: Female, 50 years old. Routine annual screening examination. PERTINENT HISTORY: Non-contributory. TECHNIQUE: Digital bilateral breast ted (3D mammographic acquisition) in the CC and MLO projections. 2-D mediolateral oblique (MLO) and craniocaudad (CC) views of both breasts were obtained. CAD: Full Field Digital Mammography with Computer Added Detection was performed. COMPARISON: None. Baseline examination. FINDINGS: Breast Composition: There are scattered areas of fibroglandular density. There are no dominant masses or suspicious calcifications. There is a 3.2 mm nodule in the deep central aspect of the right breast. This may represent a small cyst or lymph node. No other significant abnormalities are identified. BI/SCRN MAMM (CAD)W/TED BILAT IMPRESSION: Negative screening mammogram. Yearly followup mammogram recommended. (A) ASSESSMENT CATEGORY: BIRADS Category 2: Benign. A letter regarding these results will be sent to the patient by the facility within 30 days. Approximately 10% of breast cancers are not detected by mammography. A normal mammogram should not delay biopsy of a clinically suspicious abnormality. [id number] Electronically Signed: Evangelista Thibodeaux MD at 15:31 EDT ,
== END | disposition home or self-care (01) ==
LOC: OPBI 14:40
PROVIDERS: PCP Family Medicine; Visit Provider Family Medicine
DX: Z12.31 Encounter for screening mammogram for malignant neoplasm of breast (principal)
CPT/HCPCS: 77063; 77067

== ENCOUNTER → 2024-01-24 | Outpatient (CLI) | payer BC, SELFPAY | END | disposition home or self-care (01) | LOC: MFPLAB 13:47 | PROVIDERS: PCP Family Medicine; Visit Provider Family Medicine | DX: N39.0 Urinary tract infection, site not specified (principal) | CPT/HCPCS: 87086; 87088 ==

== ENCOUNTER → 2024-04-16 | Outpatient (CLI) | payer BC, SELFPAY ==
[2024-04-16 18:17] LABS: Estradiol < 11.0 pg/mL
[2024-04-18 04:08] LABS: PROGESTERONE 0.1 ng/mL (.)
[2024-04-22 09:08] LABS: Testosterone, % Free 2.05 % (0.50-2.80); Testosterone, Free 0.12 ng/dL (0.10-0.85); Testosterone, Total 6 ng/dL (4-50)
== END | disposition home or self-care (01) ==
LOC: MFPLAB 15:32
PROVIDERS: PCP Family Medicine; Referring Provider Family Medicine; Visit Provider Family Medicine
DX: N95.2 Postmenopausal atrophic vaginitis (principal)
CPT/HCPCS: 36415; 82670; 84144; 84402; 84403

== ENCOUNTER → 2024-08-17 | Outpatient (CLI) | payer BC, SELFPAY ==
[2024-08-19 15:08] LABS: HPV APTIMA, High Risk Negative (Negative)
== END | disposition home or self-care (01) ==
PROVIDERS: PCP Family Medicine; Visit Provider Obstetrics & Gynecology
DX: Z12.4 Encounter for screening for malignant neoplasm of cervix (principal)
CPT/HCPCS: 87624; 88175; G0145

== ENCOUNTER → 2024-08-31 | Outpatient (CLI) | payer BC, SELFPAY ==
--- NOTE | 2024-08-31 08:59 | US_ITS ---
PROCEDURE: 08/31/2024 REASON FOR EXAM: INCOMPLETE UTERINE PROLAPSE TECHNIQUE: Transabdominal and transvaginal pelvic ultrasound COMPARISON: None. FINDINGS: The uterus is anteverted. It measures up to 6.5 x 3.4 by 3 cm. No discrete fibroids noted. Endometrial thickness measures up to 2.7 mm. The ovaries were only visualized on the transabdominal examination. The right ovary measures up to 2.6 x 1.5 x 0.9 cm. The left ovary measures up to 1.3 x 1.1 by 0.9 cm. The technologist demonstrates color flow within the bilateral ovaries. There is no fluid within the cul-de-sac. Echogenic areas seen within bilateral tubes which may represent tubal coils. US/Pelvic w/ Transvaginal IMPRESSION: Limited examination. Please see above. Evaluation for prolapse is limited on this study. Reading Location: [id number]
--- NOTE | 2024-08-31 10:15 | BI_ITS ---
EXAM: SCRN MAMM (CAD)W/TED BILAT DATE: 08/31/2024 CLINICAL HISTORY: F, Age 53 y/o , SCREENING MAMMOGRAM BREAST CANCER RISK ASSESSMENT: Has not been calculated. TECHNIQUE: Bilateral screening digital breast tomosynthesis with 2D and 3D images. Computer aided detection. COMPARISON: Prior exam(s) dated 09/21/2021.. FINDINGS: TISSUE DENSITY: The breast tissue is almost entirely fatty. Bilateral Breast Mammographic Findings: There are no suspicious masses, suspicious clustered microcalcifications, architectural distortion or secondary signs of malignancy identified in either breast. A benign-appearing macrocalcification is seen in the right breast. BI/SCRN MAMM (CAD)W/TED BILAT IMPRESSION: OVERALL FINAL ASSESSMENT: BIRADS 2 BENIGN FINDING RECOMMENDATION: Routine annual follow-up in 1 Year A letter with findings and recommendations will be mailed to the patient. Reading Location: [id number]
== END | disposition home or self-care (01) ==
PROVIDERS: PCP Family Medicine; Referring Provider Obstetrics & Gynecology; Visit Provider Obstetrics & Gynecology
DX: Z12.31 Encounter for screening mammogram for malignant neoplasm of breast (principal); N81.2 Incomplete uterovaginal prolapse
CPT/HCPCS: 76830; 76856; 77063; 77067

== ENCOUNTER → 2024-10-13 | Outpatient (CLI) | payer BC, SELFPAY ==
[2024-10-13 17:47] LABS: Absolute Lymphocyte Count 2.04 X10^3/uL (0.83-4.51); Absolute Neutrophil Count 5.6 X10^3/uL (2.0-7.7); Basophil# 0.03 X10^3/uL; Basophil% 0.4 % (0-1); Eosinophil# 0.14 X10^3/uL; Eosinophils% 1.7 % (0-5); Hematocrit 42.9 % (37-47); Hemoglobin 13.7 g/dL (12.0-15.0); Lymphocyte # 2.04 X10^3/ul (0.83-4.51); Lymphocyte % 24.4 % (19-41); Mean Corp Hgb Conc 31.9 g/dL (32-36); Mean Corpuscular Hgb 28.5 pg (27.0-32.0); Mean Corpuscular Volume 89.2 fL (81-99); Mean Platelet Vol. 10.3 fl (6.2-12.0); Monocyte# 0.58 X10^3/uL; Monocyte% 6.9 % (0-10); NRBC Flagged by Analyzer 0 % (0-5); Neutrophil # 5.55 X10^3/uL (2.7-7.7); Neutrophil % 66.4 % (47-70); Platelet Count 248 K/mm3 (150-450); RBC Distribution Width CV 13.7 % (11.6-14.6); RBC Distribution Width SD 44.9 fl (35.1-43.9); Red Blood Count 4.81 M/mm3 (4.2-5.4); White Blood Count 8.4 K/mm3 (4.4-11.0)
[2024-10-13 17:59] LABS: Hemoglobin A1c 5.7 % (<=5.6)
[2024-10-13 18:05] LABS: Cholesterol 234 mg/dL (<=200); Ferritin 143 ng/mL (22-378); High Density Lipoprotein 70 mg/dL; Low Density Lipoprotein Calc. 125 mg/dL; Triglycerides 196 mg/dL; Very Low Density Lipoprotein 39 mg/dL (5-40); cholesterol:hdl ratio screen 3.34
[2024-10-13 18:28] LABS: ALB/GLOB Ratio 1.8 RATIO (0.9-2.4); AST(SGOT) 21 U/L (<=31); Alanine Aminotransfer ALT/SGPT 21 U/L (<=34); Albumin, Serum 4.5 g/dL (3.5-5.0); Alkaline Phosphatase 74 U/L (35-104); BUN 25 mg/dL (4-19); BUN/Creat Ratio 26.7 RATIO (10-20); Calcium,Total 9.5 mg/dL (7.6-11.0); Carbon Dioxide 24.3 mmol/L (21.0-32.0); Chloride 103 mmol/L (98-108); Creatinine, Serum 0.93 mg/dL (0.70-1.20); EST Glomerular Filtration Rate 72 (>60); Globulin 2.5 g/dL (2.2-4.2); Glucose 83 mg/dL (70-99); Potassium 4.2 mmol/L (3.3-5.1); Protein, Total 6.9 g/dL (5.9-8.4); Sodium Level 139 mmol/L (133-145); Total Bilirubin 0.24 mg/dL (0.00-1.30)
[2024-10-13 18:29] LABS: Anion Gap 11 (5-15)
== END | disposition home or self-care (01) ==
LOC: MFPLAB 14:59
PROVIDERS: PCP Family Medicine; Referring Provider Family Medicine; Visit Provider Family Medicine
DX: G47.62 Sleep related leg cramps (principal); E11.69 Type 2 diabetes mellitus with other specified complication
CPT/HCPCS: 36415; 80053; 80061; 82728; 83036; 85025

== ENCOUNTER → 2025-02-08 | Outpatient (CLI) | payer BC, SELFPAY ==
--- OUTSIDE RECORDS SUMMARY | 2024-02-25 09:47 | XMS RPT_ITS ---
Author Name Auto Generated Organization [facility] Care Team Providers Care Director Of State Name Role Phone NNEKA DOUGLAS Primary Care Unavailable PROBLEMS DATE TYPE CONDITION / CODE ATTENDING STATUS [facility] 02/25/2024 Admitting Diagnosis Type 2 diabetes mellitus with other specified complication / E11.69(ICD-10) NA [facility] 02/25/2024 Admitting Diagnosis Insomnia, unspecified / G47.00(ICD-10) NA [facility] PROCEDURES No Procedure Records Found RESULTS THYROTROPIN Collected: 9:53 AM Status: F Source: [facility] Order Comment: TSH testing i s performed using different testing methodology at [facility] than at [facility]. Direct result comparisons should only be made within the same method. TYPE CODE TESTS RESULT OUT OF RANGE REFERENCE UNITS LAB 3016-3(LOINC) Thyrotropin 2.01 0.44-3.98 mIU/ L Performed By: #### [id number] ## ## DANIELSON ROS ([id number]) [facility] ([facility]) [address] [place] [address] COMPREHENSIVE METABOLIC 2000 PANEL Collected: 02/25/2024 9:53 AM Status: F Source: [facility] TYPE CODE TESTS RESULT OUT OF RANGE REFERENCE UNITS LAB 2345-7(LOINC) Glucose 90 74-99 mg/dL LAB 2951-2(LOINC) Sodium 142 136-145 mmol/L LAB 2823-3(LOINC) Potassium 4.5 3.5-5.3 mmol/L LAB 2075-0(LOINC) Chloride 109 High 98-107 mmol/L LAB 8-9(LOINC) Carbon dioxide 30 21-32 mmo l/L LAB 84020-9(LOINC ) Anion gap 8 Low 10-20 mmol/L LAB 3094-0(LOINC) Urea nitrogen 22 6-23 mg/d L LAB 2160-0(LOINC) Creatinine 0.81 0.50-1.05 mg/dL LAB 35558-1(LOINC ) Glomerular filtration rate/1.73 sq M.predicted 86 >60 mL/min/ 1.73m*2 Result Comment: Calculations of estimated GFR are performed using the 2020 CKD- EPI Study Refit equation without the race variable for the IDMS-Traceable creatinine methods. https://jasn.asnjournals.org/content/early//ASN.5861914798 LAB 07573-1(LOINC ) Calcium 9.3 8.6-10.3 mg/dL LAB 07388-7(LOINC ) Albumin 4.4 3.4-5.0 g/dL LAB 6768-6(LOINC) Alkaline phosphatase 64 33-110 U/L LAB 2885-2(LOINC) Protein 6.2 Low 6.4-8.2 g/dL LAB 61885-4(LOINC ) Aspartate aminotransferase 18 9-39 U/L LAB 1975-2(LOINC) Bilirubin 0.5 0.0-1.2 mg/dL LAB 1743-4(LOINC) Alanine aminotransferase 21 7-45 U/L Result Comment: Patients pranav ated with Sulfasalazine may generate falsely decreased results for ALT. Performed By: #### [id number] # ### ERUM SOMMER ([id number]) [facility] ([facility]) [address] [place] [address] HEMOGLOBIN A1C/HEMOGLOBIN.TOTAL Collect ed: 02/25/2024 9:53 AM Status: F Source: [facility] Order Comment: Diagnosis of Diabetes-Adults Non-Diabetic: < or = 5.6% Increased risk for developing diabetes: 5.7-6.4% Diagnostic of diabetes: > or = 6.5% TYPE CODE TESTS RESULT OUT OF RANGE REFERENCE UNITS LAB 4548-4(LOINC ) Hemoglobin A1c/Hemoglob in.total 5.7 High See comment % LAB 73682-3(LOIN C) Estimated average glucose 117 Not Established mg/dL Performed By: #### [id number] ## ## TJ Driver ([id number]) [facility] ([facility]) [address] [place] [address] ALLERGIES DATE TYPE / CODE NAME / CODE REACTION SEVERITY SOURCE SYSTEMIC/[id number](SNOMED CT) ALLERGIES NOT ON FILE [facility] ENCOUNTERS ADMIT/DISCHARGE ACCOUNT NUMBER ADMITTING ENCOUNTER CLASS LOCATION SOURCE 02/25/2024/ 4 [id number] Ambulatory Building:[facility] PAYERS ENCOUNTER GUARANTOR PAYER SUBSCRIBER SOURCE 02/25/2024 MARKOS MENDOZAOB: [address] [place] [id number]: () Primary Insurance:U[employer] means Number: [id number] tive Date:2022-12-11 MARKOS MENDOZAOB: [id number] [place] [id number]: () [facility]
[2025-02-08 17:53] LABS: Hematocrit 42.9 % (37-47); Hemoglobin 13.6 g/dL (12.0-15.0); Immature Granulocytes Count 0.030 X10^3/uL (0.0-0.0); Mean Corp Hgb Conc 31.7 g/dL (32-36); Mean Corpuscular Volume 89.2 fL (81-99); Mean Platelet Vol. 10.7 fl (6.2-12.0); NRBC Flagged by Analyzer 0 % (0-5); Platelet Count 271 K/mm3 (150-450); RBC Distribution Width CV 14.3 % (11.6-14.6); RBC Distribution Width SD 46.3 fl (35.1-43.9); Red Blood Count 4.81 M/mm3 (4.2-5.4); White Blood Count 7.4 K/mm3 (4.4-11.0)
[2025-02-08 18:29] LABS: AST(SGOT) 22 U/L (<=31); Alanine Aminotransfer ALT/SGPT 27 U/L (<=34); Albumin, Serum 4.6 g/dL (3.5-5.0); Alkaline Phosphatase 74 U/L (35-104); Anion Gap 11 (5-15); BUN 23 mg/dL (4-19); BUN/Creat Ratio 26.9 RATIO (10-20); Calcium,Total 9.2 mg/dL (7.6-11.0); Carbon Dioxide 24.9 mmol/L (21.0-32.0); Chloride 106 mmol/L (98-108); Ferritin 189 ng/mL (22-378); Globulin 2.2 g/dL (2.2-4.2); Glucose 84 mg/dL (70-99); Potassium 4.5 mmol/L (3.3-5.1)
== END | disposition home or self-care (01) ==
LOC: MFPLAB 14:33
PROVIDERS: PCP Family Medicine; Visit Provider Family Medicine
DX: E11.69 Type 2 diabetes mellitus with other specified complication (principal); G25.81 Restless legs syndrome
CPT/HCPCS: 36415; 80053; 82728; 83036; 85025

== ENCOUNTER 2025-04-29 15:00 | Outpatient (RCR) | payer BC, SELFPAY ==
--- NOTE | 2024-09-22 17:26 | HP.PTEVAL_ITS ---
Patient's Visit Information Visit Information Visit Information: MARY CABRERA is a 53 year old F referred to Physical Therapy by Dr. Sophie hWite MD with a diagnosis of N81.2 Incomplete Uterovaginal Prolapse. Date of Evaluation: 09/22/24 Physical Therapist: Alexandra Hearn Visit Plan Frequency: 1x/Week Duration: 3 Months Plan: Continue 1 x week. Add week 2 next visit. Continue pelvic floor releases left side layers 2-3 to help with dyspareunia. Will check deep breathing, discuss pressure management for prolapse and evaluate low back next visit. Have her prop up for pelvic floor strengthening. Discuss splinting next visit. Subjective Subjective: She is referred by Dr. Tai for an incomplete uterovaginal prolapse. She has constipation which is chronic. She can go 4-5 days without a bowel movement. She is using magnesium daily to manage constipation. She realizes surgery to manage the prolapse would be hindered due to her chronic constipation. She has been splinting for about 4-6 months. She hasn't been able to go to the gym due to life. She would notice a squeeky feeling vaginally and rectally after doing sit ups if she hadn't had a bowel movement. Coughing, sneezing, movement she can have leaking. She goes thru 1-2 pads a day. Sometimes if she stands up and she really has to urinate, it will just start coming and there is no controlling it. She never has to push anything back up or feels any bulging at the opening. She had a miscarriage and 4 live births. First 2 C sections. Third was her first vaginal delivery and baby was vacuum extracted out and a third degree episiotomy. No issues with the fourth delivery. She hydrates well. She drinks one coffee a day in a tumbler. She had a urethral sling about 10-12 years ago. Helped for a long time. She was having burning with urination but that resolved with using estrogen suppositories. She had pain with intercourse with deep penetration. She is very active in her grandchildren's lives. She helps out with nieces and nephews kids. She stays home. Her goal is to manage this conservatively. She doesn't want to fix with surgery. She plans to get back to the gym for crossfit. No low back pain. She gets up at least 1-2 times a night. She had a discectomy L5-S1 3 years ago. Small bulge of L4-L5. She takes care of her father who is a paraplegic. She likes to do heavy lifting with cross fit work outs and wants to get back to that. As she would have to limit heavy lifting after a surgery, she doesn't feel like that's a good option for her. Objective Objective: POPDI-6 9, CRAD-8 14, FABIANO-6 13 LAYCOCK 2+/5/5/3 mild, moderate pelvic floor tightness left side of pelvic bowling alley floors installer 2-3 Cystocele 0-1, Rectocele 2 Goals Goal 1:: Mary will be able to delay using the restroom by 5 minutes when urgency comes on to avoid any incontinence episodes. Goal Time Frame: 8-12 Weeks Goal 2:: Mary will be able to cough or sneeze without leaking. Goal Time Frame: 8-12 Weeks Goal 3:: Mary will be able to tolerate vaginal penetration using a medium sized speculum without vaginal pain or discomfort. Goal Time Frame: 6-8 Weeks Goal 4:: Mary will not have to get up in the middle of the night to urinate to allow for more restful sleep. Goal Time Frame: 6-8 Weeks Rehabilitation Potential Physical Therapy Diagnosis: Mixed Incontinence, Deep dyspareunia, Nocturia Rehabilitation Potential: Good Anticipated Interventions Patient/Client Instruction: Educate patient on: Condition and Plan of Care For the Purpose of:: To improve muscle performance and motor function, To improve health and function, To improve self management and To improve tolerance to ADL's Therapeutic Exercise to Include: Strength training, Neuromotor development and Relaxation training For the Purpose of:: To improve muscle performance and motor function, To improve health and function and To improve self management Manual Therapy Techniques to Include: Trigger point massage, Mobilization and Soft tissue mobilization For the Purpose of:: To improve muscle performance and motor function and To improve health and function Text: Thank you for the opportunity to evaluate your patient. For Medicare and Medicare HMO plans, please review the plan of care and approve it. It will need to be FAXED BACK to us at [phone] for Medicare purposes. For Medicare only, by signing this I certify the plan of care. Please let me know if there are questions or concerns regarding this plan of care. Physician Signature: Date:
--- NOTE | 2024-12-09 19:12 | HP.PTEVAL2_ITS ---
Patient's Visit Information Visit Information Visit Information: MARY CABRERA is a 53 year old F referred to Physical Therapy by Dr. Surya Gomez MD with a diagnosis of Low back pain, unspecified. Date of Evaluation: 12/08/24 Physical Therapist: Alexandra Hearn Visit Plan Frequency: 1-2x /Week Duration: 2 Months Plan: Mary would benefit from skilled PT intervention to address her low back pain and functional limitations. She has a history of a lumbar bulging disc and laminectomy. I am suspecting that her lumbar bulging disc (L4-L5) is likely contributing to her pain and LE symptoms. She does have some mild weakness in her left leg indicating some lumbar nerve root irritation as well. Continue 1 x week. Continue manual therapy and modalities. Her pain is worse on left side with LE twitching and left leg numbness at night. Will try lumbar traction for spinal decompression. Subjective Subjective: Low back pain is chronic for her. Low back surgery was in 2020 (? she is uncertain of date). Laminectomy/Discectomy of L5-S1. L4-L5 had a small bulge as well which was not addressed in surgery. She did well after the surgery until about a year and a half ago. Numbness returned down the left side into the left buttock to the left calf. In the last 2 years, she developed muscle twitching. Happens sleeping at night but sometimes it occurs during the day. Twitching happens in both legs to the calves (worse on the left leg). She is taking Gabapentin and that is helping quite a bit (muscle twitching and cramps is much better). She has charley horses in the legs in the morning. Low back pain is pretty constant. Varies in intensity. More prominent if she stands for long periods of time (1-2 or more hours) or bending. Low back pain averages 2-3/10 to a high of 8/10 (she takes Tramadol if her pain is up to 8/10). No increased pain with coughing or sneezing. Lifting and bending aggravating as well. LE pain is averaging 5-6/10 daily with working out. She hopes to get back to Cross Fit. She was taking Naproxyn daily but hasn't done that lately as she isn't working out anymore. Pain Low back pain: Intensity: 2 Pain Intensity Range: 8 Objective Objective: Lumbar range of motion: Flexion 50% limited pulling pain Extension No pain Sidebending right- left lumbar pain 40% limited Rotation no significant pain Left hip flexion 3+/5 Left hamstring 4-/5 Left great toe extension 4-/5 + slump test on left side + seated SLR test on left side Left upslip, Left rotation L2-L5 , moderate left lumbar tightness and piriformis tightness Goals Goal 1:: Mary will be able to sit for up to 2 hours to watch a movie or go on a road trip without low back pain or LE symptoms. Goal Time Frame: 8-12 Weeks Goal 2:: Mary will be able to bend repetitively to do housework with 2/10 low back pain during and after and no LE twitching or pain afterward. Goal Time Frame: 8-12 Weeks Goal 3:: Mary will be able to tolerate standing 1-2 hours at a time to do kitchen, cooking activities with 2/10 low back pain during and after. Goal Time Frame: 6-8 Weeks Goal 4:: Mary will be able to return to modified exercise routine (Cross Fit) with 2/10 low back pain during and after. Goal Time Frame: 8-12 Weeks Rehabilitation Potential Physical Therapy Diagnosis: Low back pain, unspecified Rehabilitation Potential: Good Anticipated Interventions Patient/Client Instruction: Educate patient on: Condition and Plan of Care For the Purpose of:: To decrease pain, To improve muscle performance and motor function, To improve health and function and To improve self management Therapeutic Exercise to Include: Dynamic Lumbar Stabilization and Moo Exercises For the Purpose of:: To decrease pain, To improve muscle performance and motor function, To improve health and function and To improve self management Manual Therapy Techniques to Include: Trigger point massage, Massage, Mobilization, Functional dry needling and Soft tissue mobilization For the Purpose of:: To decrease pain, To improve muscle performance and motor function, To improve health and function and To improve self management Ultrasound (thermal/non thermal): Yes Pelvic traction prone: Yes For the Purpose of:: To decrease pain, To improve muscle performance and motor function, To improve health and function and To improve self management text: Thank you for the opportunity to evaluate your patient. For Medicare and Medicare HMO plans, please review the plan of care and approve it. It will need to be FAXED BACK to us at [phone] for Medicare purposes. For Medicare only, by signing this I certify the plan of care. Please let me know if there are questions or concerns regarding this plan of care. Physician Signature: Date:
--- NOTE | 2025-01-20 12:38 | HP.PTDCSUM ---
Discharge Summary D/C summary: It has been my pleasure to treat MARY CABRERA referred by Dr. Surya Gomez MD, with the diagnosis of N81.2 Incomplete Uterovaginal Prolapse for a total of 9 visit(s). Discharge Date: 01/20/25 Please see the following information for a summary of their discharge status. Subjective Subjective: She notices a little spontaneous leaking with movement if she waits too long to urinate. She has only had one episode of leaking before she can get to the bathroom in the last 2 months. Low back has been tweaky but overall better. Low back pain has been averaging 3/10. 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 Pain low back: Pain Intensity (Out of 10): 3 Overall Improvement % Improvement: 85 Objective Objective/Function: She has improved nicely since the evaluation. She reports 80-90% improvement overall. She is very pleased with her progress and ready for discharge. Goals Goal 1:: Mary will be able to delay using the restroom by 5 minutes when urgency comes on to avoid any incontinence episodes. Goal Progress: 90% improved Goal 2:: Mary will be able to cough or sneeze without leaking. 01/20/25 On occasion with a hard cough or sneeze, she can still leak but 80-85% improved. Goal 3:: Mary will be able to tolerate vaginal penetration using a medium sized speculum without vaginal pain or discomfort. Goal Progress: Goal Met Goal 4:: Mary will not have to get up in the middle of the night to urinate to allow for more restful sleep. 01/20/25 She is getting up 1 x night on average. 80% improved. (She was getting up every 2-3 hours at the [facility]) Plan Plan: D/C from PT as she has met her goals 80-90% improvement. D/C Information Discharge Comments: She plans to continue the pelvic floor exercises at home. She has met her max rehab potential. She is very pleased with her progress and reports 80-90% improvement overall in her pelvic floor symptoms. d/c sentence: If there are questions or concerns regarding this patient's physical therapy, please feel free to call me at [phone]. Thank you for the referral of this patient. Sincerely, Alexandra Hearn Balance/Gait/Functional tests Balance/Special Test Scores Oswestry Low Back Score: 7 Improvement % Improvement: 85
== END 2025-04-29 19:00 | disposition home or self-care (01) ==
LOC: PT 15:00
PROVIDERS: PCP Family Medicine; Referring Provider Family Medicine; Visit Provider Family Medicine
DX: N81.2 Incomplete uterovaginal prolapse (principal)
CPT/HCPCS: 97012; 97110; 97112; 97140; 97161; 97162; 97530